=== PATIENT | female | born 2000 | race African-American/Black ===

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

== ENCOUNTER 2024-03-01 04:44 | Emergency (ER) | payer OTHER ==
[2024-03-01 04:54] VITALS: RESP 20; BMI 32.8
[2024-03-01] MEDS ORDERED: ACETAMINOPHEN 325 MG TABLET (FP) ONE (05:17)
[2024-03-01] MEDS: ACETAMINOPHEN 500 MG TABLET (FP) PO ONE (05:23)
[2024-03-01] MEDS: DIPHTH,PERTUSS(ACELL),TET 0.5 ML DISP.SYRIN IM ONE (07:15)
[2024-03-01] MEDS ORDERED: DIPHTH,PERTUSS(ACELL),TET 0.5 ML DISP.SYRIN IM ONE (07:36)
[2024-03-01 08:01] VITALS: BP 141/85; PULSE 76
[2024-03-01 08:12] VITALS: TEMP 98.6
== END 2024-03-01 08:42 | disposition home or self-care (01) ==
LOC: JER 04:44
PROC: 2W3DX1Z Immobilization of Left Lower Arm using Splint (ICD-10-PCS; principal; 2024-03-01)
PROC: 3E0234Z Introduction of Serum, Toxoid and Vaccine into Muscle, Percutaneous Approach (ICD-10-PCS; 2024-03-01)
DX: S52.122A Displaced fracture of head of left radius, initial encounter for closed fracture (principal); M25.562 Pain in left knee; W18.39XA Other fall on same level, initial encounter; Z23 Encounter for immunization
CPT/HCPCS: 29125; 73030-TC-LT-FY; 73060-TC-LT-FY; 73070-TC-LT-FY; 73090-TC-LT-FY; 73110-TC-LT-FY; 73130-TC-LT-FY; 90471; 90715; 99283-25